=== PATIENT | female | born 1985 | race African-American/Black ===

== ENCOUNTER → 2016-07-20 | Outpatient (CLI) | payer OTHER ==
[~2016-07-20] MED LIST: PREN0.01 PO
== END ==
LOC: HPND 12:41
PROVIDERS: ATTEND Obstetrics & Gynecology
DX: O35.8XX0 Maternal care for other (suspected) fetal abnormality and damage, not applicable or unspecified (principal); Q51.3 Bicornate uterus; Z98.891 History of uterine scar from previous surgery
CPT/HCPCS: 76811